=== PATIENT | female | born 1965 | race Caucasian/White ===

== ENCOUNTER 2022-01-26 11:27 | Outpatient (REF) | payer MEDICAID, SELFPAY ==
[2022-01-26 14:43] LABS: Abs Immature Grans 0.01 10^3/uL (0.0-0.06); Absolute Basophil Count 0.05 10^3/uL (0.0-0.2); Absolute Eosinophil Count 0.12 10^3/uL (0.0-0.7); Absolute Lymphocyte Count 1.65 10^3/uL (1.2-3.4); Absolute Monocyte Count 0.66 10^3/uL (0.1-0.8); Absolute Neutrophil Count 4.77 10^3/uL (1.2-6.7); Basophils % 0.7; Eosinophils % 1.7; HCT 43.8 % (36.0-46.0); HGB 14.5 g/dL (11.2-15.7); Immature Grans % 0.1; Lymphocytes % 22.7; MCH 30.2 pg (27.0-33.0); MCHC 33.1 % (32.0-36.0); MCV 91 fL (80-95); Monocytes % 9.1; Neutrophils % 65.7; Platelet Count 330 10^3/uL (130-400); RDW 12.4 % (11.7-14.6); RDW-SD 41.3 fL; WBC 7.26 10^3/uL (4.4-10.8)
[2022-01-26 14:58] LABS: Anion Gap 9.6 mmol/L (3-11); BUN 14 mg/dL (7-18); CO2 27.4 mmol/L (21.0-32.0); CREATININE 0.7 mg/dL (0.55-1.02); Calcium 9.8 mg/dL (8.5-10.1); Calculated LDL 208 mg/dL (<100); Chloride 102 mmol/L (98-107); Cholesterol 292 mg/dL (<200); Estimated GFR 102.07 (mL/min/1.73m2); Glucose 102 mg/dL (74-106); HDL Cholesterol 71 mg/dL (40-60); Potassium 4.4 mmol/L (3.5-5.1); Sodium 139 mmol/L (136-145); Triglyceride 67 mg/dL (<150)
== END 2022-01-26 11:28 | disposition home or self-care (01) ==
LOC: NCHCN 11:27
PROVIDERS: Visit Provider Registered Nurse
DX: R10.2 Pelvic and perineal pain (principal); R10.31 Right lower quadrant pain
CPT/HCPCS: 80048; 80061; 85025; 87086

== ENCOUNTER 2022-03-03 16:44 | Outpatient (REF) | payer MEDICAID, SELFPAY ==
[2022-03-03 16:52] LABS: TSH (W/Ref FT4) 1.59 uIU/mL (0.36-3.74)
== END 2022-03-03 16:45 | disposition home or self-care (01) ==
LOC: NCHCN 16:44
PROVIDERS: PCP Registered Nurse; Visit Provider Registered Nurse
DX: R53.83 Other fatigue (principal)
CPT/HCPCS: 84443

== ENCOUNTER 2024-08-07 16:39 | Outpatient (REF) | payer MEDICAID, SELFPAY ==
[2024-08-07 21:25] LABS: HCT 43.9 % (36.0-46.0); HGB 14.8 g/dL (11.2-15.7); MCH 30.8 pg (27.0-33.0); MCHC 33.7 % (32.0-36.0); MCV 92 fL (80-95); Platelet Count 342 10^3/uL (130-400); RDW 11.9 % (11.7-14.6); RDW-SD 39.8 fL; WBC 7.52 10^3/uL (4.4-10.8)
[2024-08-07 22:02] LABS: ALT 38 U/L (14-59); AST 29 U/L (15-37); Alkaline Phosphatase 101 U/L (46-116); Anion Gap 9.3 mmol/L (3-11); BUN 18 mg/dL (7-18); Bilirubin, Total 0.2 mg/dL (0.2-1.0); CO2 27.7 mmol/L (21.0-32.0); CREATININE 0.9 mg/dL (0.55-1.02); Calcium 9.4 mg/dL (8.5-10.1); Calculated LDL 182 mg/dL (<100); Chloride 105 mmol/L (98-107); Cholesterol 268 mg/dL (<200); Glucose 103 mg/dL (74-106); HDL Cholesterol 69 mg/dL (>or=50); Potassium 4.2 mmol/L (3.5-5.1); Sodium 142 mmol/L (136-145); TSH (W/Ref FT4) 1.84 uIU/mL (0.36-3.74); Triglyceride 89 mg/dL (<150); Vitamin D 25 Total 30 ng/mL (30-100)
== END 2024-08-07 16:40 | disposition home or self-care (01) ==
LOC: NCHCN 16:39
PROVIDERS: PCP Registered Nurse; Visit Provider Family Medicine
DX: R53.83 Other fatigue (principal); Z13.220 Encounter for screening for lipoid disorders
CPT/HCPCS: 80053; 80061; 82306; 85027; 84443